=== PATIENT | male | born 1965 | race African-American/Black ===

== ENCOUNTER 2022-07-09 16:04 | Emergency (ER) | payer MEDICARE, OTHER ==
[~2022-07-09] VITALS: Ht 193 cm; Wt 167.8 kg
[2022-07-09] MEDS ORDERED: ACAR50TA2 PO (16:29)
[2022-07-09] MEDS ORDERED: COLC0.6C3 PO (16:29)
[2022-07-09] MEDS ORDERED: HYDR-3980 PO (16:29)
[2022-07-09] MEDS ORDERED: FURO-152 PO (16:29)
[2022-07-09] MEDS ORDERED: ASPI-1420 PO (16:29)
[2022-07-09] MEDS ORDERED: BICT1TAB PO (16:29)
[2022-07-09] MEDS ORDERED: METO25TA6 PO (16:29)
[2022-07-09 16:34] LABS: HEMATOCRIT 40.2 % (36.7-47.1); MEAN CORPUSCULAR VOLUME 82.5 fL (73.0-96.2); PLATELET COUNT (AUTO) 261 K/uL (152-348)
[2022-07-09 16:44] LABS: CARBON DIOXIDE 26 mmol/L (21-32); CHLORIDE 105 mmol/L (98-107); CREATININE 0.8 mg/dL (0.6-1.3); GLUCOSE 176 mg/dL (74-106); POTASSIUM 3.7 mmol/L (3.5-5.1); UREA NITROGEN, BLOOD 10 mg/dL (7-18)
[2022-07-09 16:52] LABS: ALANINE AMINOTRANSFERASE 55 U/L (16-63); ALKALINE PHOSPHATASE 97 U/L (50-136); ASPARTATE AMINOTRANSFERASE 61 U/L (15-37); BILIRUBIN,DIRECT 0.1 mg/dL (0.0-0.2); BILIRUBIN,TOTAL 0.5 mg/dL (0.2-1.0); TOTAL PROTEIN, SERUM 7.4 g/dL (6.4-8.2)
[2022-07-09] MEDS ORDERED: NITROGLYCERIN 0.4 MG/TAB BOTTLE SL ONE ×2 (17:00→17:09)
[2022-07-09] MEDS ORDERED: ASPIRIN 325 MG TABLET PO ONE (17:00)
[2022-07-09] MEDS ORDERED: ASPIRIN 81 MG TAB.CHEW ONE (17:08)
[2022-07-09 17:11] VITALS: BP 122/69
--- NOTE | 2022-07-09 18:15 | NUR ---
Dose 1 -- 1711 hrs: 8/10 CP -- 85 HR, 16 Resp, 96%, 122/69 Dose 2 -- 1716 hrs: 5-6/10 CP -- 78, 22, 95%, 126/77 Dose 3 -- 1723 hrs: 4/10 CP -- 76, 24, 98%, 134/76
[2022-07-09] MEDS ORDERED: HEPARIN SODIUM,PORCINE 5,000 UNITS/ML VIAL IV ONE (18:30)
[2022-07-09] MEDS ORDERED: HEPARIN SODIUM,PORCINE 5,000 UNITS/ML VIAL ONE (18:45)
[2022-07-09] MEDS ORDERED: HEPARIN/D5W DRIP 500 ML IV SCH (18:45)
--- NOTE | 2022-07-09 20:03 | NUR ---
Faxed covid result to [facility]
[2022-07-09] MEDS ORDERED: HEPARIN/D5W DRIP 500 ML ONE (20:31)
--- NOTE | 2022-07-09 21:00 | NUR ---
Called [facility], and [facility] for [facility] transportation all stated that they have no avaliable transportation for this evening.
--- NOTE | 2022-07-09 22:10 | NUR ---
It is okay for this patient to be transported to [facility] with no heparin drip. Heparin drip may be restarted at [facility].
--- NOTE | 2022-07-09 22:20 | NUR ---
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
--- NOTE | 2022-07-09 22:28 | NUR ---
Report given to [place] lEizabeth from [facility].
--- NOTE | 2022-07-10 00:29 | NUR ---
Pt's IV left forearm was pulled out. An attempt to put in a new IV was made, pt refused. Benefits and risk explained.
--- NOTE | 2022-07-10 01:00 | NUR ---
[facility] personnel have arrived and report was given. Heparin drip med was provide for transport to [facility].
--- NOTE | 2022-07-10 01:08 | NUR ---
Patient Tranfers to [place] by [facility] Physician: FIONA Ren Location: [address] [facility] [address]
== END 2022-07-10 01:10 | disposition short-term general hospital (02) ==
LOC: ER 16:06
DX: I21.4 Non-ST elevation (NSTEMI) myocardial infarction (principal); R53.1 Weakness; I11.0 Hypertensive heart disease with heart failure; I50.9 Heart failure, unspecified; Z79.899 Other long term (current) drug therapy; I69.322 Dysarthria following cerebral infarction; Z20.822 Contact with and (suspected) exposure to COVID-19
CPT/HCPCS: 99291; 96365; 70450; 96366; 87426; 80076; 80048; 83880; 85025; 85730; 84484 ×2; 36415; 93005; 71045; 96376; J1644 ×2; A4663